=== PATIENT | female | born 1960 | race Caucasian/White ===

== ENCOUNTER 2017-02-19 03:31 | Emergency (ER) | payer BC ==
[2017-02-19 04:16] LABS: BASOPHILS 0.9 %; BASOPHILS ABSOLUTE 0.05 10/3/uL (0.0-0.16); EOSINOPHILS 2.1 %; EOSINOPHILS ABSOLUTE 0.12 10/3/uL (0.0-0.53); HEMATOCRIT 40.4 % (36.0-48.0); HEMOGLOBIN 14.2 g/dL (12.0-16.0); IMMATURE GRANULOCYTES 0.2 %; IMMATURE GRANULOCYTES ABSOLUTE 0.01 10/3/uL (0.0-0.11); LYMPHOCYTES ABSOLUTE 1.74 10/3/uL (0.67-4.30); MEAN CORPUSCULAR HEMOGLOB 29.7 pg (26.0-34.0); MEAN CORPUSCULAR VOLUME 84.5 fL (80-100); MEAN PLATELET VOLUME 11.2 fL (9.2-13.0); MONOCYTES 7.1 %; NEUTROPHILS 58.7 %; NEUTROPHILS ABSOLUTE 3.29 10/3/uL (2.02-8.40); PLATELET COUNT 252 10/3/uL (150-400); RBC DISTRIBUTION WIDTH 13.3 % (12.0-16.0); RED CELL COUNT 4.78 10/6/uL (4.0-5.6)
[2017-02-19 04:17] LABS: ER CBC TAT 0 Hrs 07 Mins; MANUAL DIFF NO %; MEAN CORPUS HGB CONC 35.1 g/dL (32.0-36.0); WHITE BLOOD CELLS 5.6 10/3/uL (4.5-10.5)
[2017-02-19 04:23] LABS: PARTIAL THROMBO TIME 29.3 SEC (22.5-37.2); PROTIME (NOT ORD) 13.2 SEC (12.0-14.5)
[2017-02-19 04:34] LABS: ALBUMIN 3.8 G/DL (3.5-5.0); ALKALINE PHOSPHATASE 65 U/L (45-117); BUN (BLOOD UREA NITROGEN) 13 MG/DL (6-23); CALCIUM, SERUM 8.7 MG/DL (8.5-10.4); CHEST PAIN PROFILE TAT 0 Hrs 24 Mins; CHLORIDE, SERUM 106 MMOL/L (96-112); CO2 (CARBON DIOXIDE) 28 MMOL/L (24-34); CREATININE 0.51 MG/DL (0.55-1.02); DIRECT BILIRUBIN < 0.1 MG/DL (0.0-0.4); GFR AFRICAN AMERICAN 125 ML/MIN (>=60); GFR NON AFRICAN AMERICAN 107 ML/MIN (>=60); GLUCOSE, SERUM 105 MG/DL (60-99); INDIRECT BILIRUBIN(NOT ORDER) 0.6 MG/DL (0.1-0.9); POTASSIUM, SERUM 3.3 MMOL/L (3.5-5.3); SGOT(AST) 12 U/L (5-40); SGPT(ALT) 19 U/L (5-65); SODIUM, SERUM 144 MMOL/L (135-148); TOTAL BILIRUBIN 0.7 MG/DL (0-1.2); TOTAL PROTEIN 7.7 G/DL (6.0-8.5); TROPONIN I <0.02 NG/ML (<0.05)
[2017-02-19] MEDS ORDERED: LEVOTHYROXIN125 MCG PO (06:30)
[2017-02-19] MEDS ORDERED: NEXIUM20 M1 PO (06:31)
[2017-02-25] MEDS ORDERED: LEVOTHYROXIN137 MCG PO (12:04)
[2017-02-25] MEDS ORDERED: VITAMIN D31000 UNIT PO (12:05)
== END 2017-02-19 07:15 | disposition home or self-care (01) ==
LOC: ER 03:31
PROVIDERS: Specialist
DX: R07.9 Chest pain, unspecified (principal); R91.8 Other nonspecific abnormal finding of lung field; E87.6 Hypokalemia; Z79.899 Other long term (current) drug therapy
CPT/HCPCS: 71010; 71275; 80048; 80076; 83735; 84484; 85025; 85379; 85610; 85730; 93005; 99285; A9270-GY; J2405; Q9967

== ENCOUNTER 2017-02-28 10:52 | Day surgery (SDC) | payer BC ==
--- NOTE | ~2017-02-28 | EGD ---
EGD REPORT [facility] [address] [address] NAME: LUZ LOPEZ : 60 STATUS : REG [facility]#: [id number] AGE: 56 ADM/REG DATE : 02/28/17 MR#: [id number] REPORT SERV DATE: 02/28/17 DICTATED BY: ROM VANCE DATE: 02/28/17 REPORT STATUS : Draft TRANSCRIBED BY: [employer] DATE: 02/28/17 Pulmonology Patient Name: Luz Lopez Procedure Date: 02/28/2017 12:13 PM Date of : 1960 Attending MD: RONALDO VANCE MD Procedure Date No Time: 02/28/2017 Procedure: EBUS Navigational Bronchoscopy Indications: RLL lung mass Providers: RONALDO VANCE MD Referring MD: JACE ABRAMS MD Medicines: Lidocaine 2% 20 mL Complications: No immediate complications Procedure: Pre-Anesthesia Assessment: - ASA Grade Assessment: II - A patient with mild systemic disease. - After reviewing the risks and benefits, the patient was deemed in satisfactory condition to undergo the procedure. - A History and Physical has been performed. Patient meds and allergies have been reviewed. The risks and benefits of the procedure and the sedation options and risks were discussed with the patient. All questions were answered and informed consent was obtained. Patient identification and proposed procedure were verified prior to the procedure by the physician, the nurse and the anesthesiologist in the pre-procedure area in the procedure room. Mental Status Examination: alert and oriented. Airway Examination: normal oropharyngeal airway. Respiratory Examination: clear to auscultation. CV Examination: normal and RRR, no murmurs, no S3 or S4. ASA Grade Assessment: II - A patient with mild systemic disease. After reviewing the risks and benefits, the patient was deemed in satisfactory condition to undergo the procedure. The anesthesia plan was to use general anesthesia. Immediately prior to administration of medications, the patient was re-assessed for adequacy to receive sedatives. The heart rate, respiratory rate, oxygen saturations, blood pressure, adequacy of pulmonary ventilation, and response to care were monitored throughout the procedure. The physical status of the patient was re-assessed after the procedure. After obtaining informed consent, the Bronchoscope was introduced through the mouth, via the endotracheal tube (the patient was intubated for the procedure) and EGD REPORT [address] [place]. [address] NAME: LUZ LOPEZ : [birth year] STATUS : REG [facility] PAT#: [id number] AGE: 56 ADM/REG DATE : 02/28/17 MR#: [id number] REPORT SERV DATE: 02/28/17 DICTATED BY: ROM VANCE DATE: 02/28/17 REPORT STATUS : Draft TRANSCRIBED BY: [employer] DATE: 02/28/17 advanced to the tracheobronchial tree. the BF [id number] was introduced through the mouth, via the endotracheal tube (the patient was intubated for the procedure) and advanced to the tracheobronchial tree. The procedure was accomplished without difficulty. The patient tolerated the procedure well. Findings: The endotracheal tube is in good position. The visualized portion of the trachea is of normal caliber. The nay is sharp. The tracheobronchial tree was examined to at least the first subsegmental level. Bronchial mucosa and anatomy are normal; there are no endobronchial lesions, and no secretions. EBUS TBNA of lymph node level 11L x 4 passes for cytology EBUS TBNA of lymph node level 4L x 4 passes for cytology EBUS TBNA of lymph node level 7 x 4 passes for cytology EBUS TBNA of lymph node level 4R x 4 passes for cytology EBUS TBNA of lymph node level 11R x 4 passes for cytology Using SuperDimension Edge catheter 180, peripheral probe EBUS 17s, and fluoroscopy, I performed the following biopsies: RLL lung mass transbronchial needle aspirates x 13 passes for cytology RLL lung mass transbronchial brush biopsy x 2 pass for cytology RLL lung mass transbronchial forcep biopsies x 14 passes for histopathology Bronchoalveolar lavage was performed in the right lower lobe of the lung and sent for cell count, cytology, bacterial culture, viral smears \\T\\ culture, and fungal and AFB analysis. 180 mL of fluid were instilled. 30 mL were returned. The return was blood-tinged and cellular. Impression: Rapid On-Site Evaluation (DELFINA): Preliminary cytology is "necrotic tissue and debris, no evidence of malignancy" (final results are pending). Recommendation: - Await test results. - Chest X-ray post-procedure. - Further recommendations at outpatient post bronchoscopy. Attending Participation: I personally performed the entire procedure. RONALDO VANCE MD 02/28/2017 2:52 PM This report has been signed electronically. Number of Addenda: 0 Note Initiated On: 02/28/2017 12:13 PM [address] [id number]
--- NOTE | ~2017-02-28 | CN ---
Consultation Report [facility] [address] [place]. [address] NAME: LUZ LOPEZ : 60 STATUS : [facility]#: [id number] AGE: 56 ADM/REG DATE : 02/28/17 MR#: [id number] REPORT SERV DATE: 03/17/17 DICTATED BY: TIM VANCE DATE: 03/16/17 REPORT STATUS : Draft TRANSCRIBED BY: MODL DATE: 03/16/17 CONSULTATION DATE OF CONSULTATION: 02/28/[address] Colten Ballard: Thank you for requesting my opinion regarding evaluation and management of Ms. Luz Lopez's right lower lobe lung mass. Ms. Lopez is an extremely pleasant 56-year-old female with a significant past medical history of hypothyroidism and lifelong nonsmoker, who presents with a right lower lobe lung mass. Ms. Lopez states that she had no significant shortness of breath, but was undergoing a routine physical, and subsequent chest x-ray demonstrated suspicious findings. CT scan of the chest on 02/20/2016 demonstrated a 3.1 x 2.3 cm lung mass with a density of 17 Hounsfield units. The differential diagnosis included a potential pseudotumor, pleural fluid collection in the major fissure versus solid lung mass. The patient was recommended to undergo Pulmonary Medicine consultation. The patient states that she has mild shortness of breath well localized to the chest, nonradiating, with no significant alleviating or exacerbating factors. REVIEW OF SYSTEMS: A detailed 14-point review of systems was completed. Pertinent positives and negatives are listed above. PAST MEDICAL HISTORY: Hypothyroidism. PAST SURGICAL HISTORY: Status post thyroidectomy in 2001 and colonoscopy in 2011. SOCIAL HISTORY: The patient is a lifelong nonsmoker. She denies any significant history of alcohol or illicit drug abuse. FAMILY HISTORY: Noncontributory. ALLERGIES: NO KNOWN DRUG ALLERGIES. HOME MEDICATIONS: Reviewed and located in the paper chart. PHYSICAL EXAMINATION: VITAL SIGNS: Reviewed and located in the paper chart. GENERAL: In no acute distress. Able to communicate in full paragraphs at a time. HEENT: Normocephalic and atraumatic. Pupils are equal, round, and reactive to light and accommodation. Posterior oropharynx is clear. NECK: No JVD. No LAD. Trachea midline. CARDIOVASCULAR: Regular rate and rhythm. S1 and S2 present. LUNGS: Clear to auscultation bilaterally. Consultation Report [facility] [address] [place]. [address] NAME: LUZ LOPEZ : 60 STATUS : [facility] PAT#: [id number] AGE: 56 ADM/REG DATE : 02/28/17 MR#: [id number] REPORT SERV DATE: 03/17/17 DICTATED BY: TIM VANCE DATE: 03/16/17 REPORT STATUS : Draft TRANSCRIBED BY: BEVERLEY DATE: 03/16/17 ABDOMEN: Nontender, nondistended, soft. Positive bowel sounds. EXTREMITIES: No clubbing, cyanosis, or edema. SKIN: No new rashes, lesions, or ulcers. PSYCHIATRIC: Alert and oriented x3. Appropriate mood and affect. Appropriate insight and judgment. NEUROLOGIC: 5/5 strength in upper and lower extremities. Cranial nerves 2 through 12 intact. Gait not tested. DTRs not performed. IMAGING: CT scan of the chest performed on 02/19/2017 has been personally reviewed by me. No evidence of pulmonary embolism. An oval, well-circumscribed 3.1 cm mass in the right lower lobe abutting the right major fissure with a density of 17 Hounsfield units. The unusual finding is the low Hounsfield unit. Unclear whether this represents pseudotumor versus solid lung mass. ASSESSMENT AND PLAN: Ms. Luz Lopez is an extremely pleasant 56-year-old female with no significant past medical history and lifelong nonsmoker, who presents to [facility] for followup of an abnormal CT scan. The patient developed mild shortness of breath, underwent a PE protocol CT with no evidence of a PE. Was found to have an oval, well- circumscribed 3.1 x 2.3 cm lung mass with a density of 17 Hounsfield units. It is unclear whether this represents a solid malignancy as Hounsfield units are unusually low. The other potential etiologies including lipoid pneumonia, pseudotumor unlikely represent a pleural fluid collection. At this point, given Ms. Lopez's concern and the size of the lesion, she wanted to proceed with biopsy. We discussed in detail potential options including EBUS and navigation bronchoscopy, CT-guided needle biopsy, PET-CT scan, or continued serial CT followup. After discussing the risks, benefits, and alternatives to each of these procedures, we agreed to proceed forward with EBUS and navigation bronchoscopy. The patient is aware that the procedure is associated with potential life-threatening risks including lung collapse, respiratory failure, and even . RECOMMENDATIONS: A summary of my recommendations are as follows: 1. Proceed with EBUS and navigation bronchoscopy. 2. If it is nondiagnostic, consider PET-CT scan plus/minus CT FNA. 3. Follow up in our Pulmonary Clinic. Thank you for allowing me to participate in Ms. Loepz's care. Sincerely, DEREK/BEVERLEY Tim Vance M.D. Consultation Report [address] [place]. [address] NAME: LUZ LOPEZ : 60 STATUS : [facility] PAT#: [id number] AGE: 56 ADM/REG DATE : 02/28/17 MR#: [id number] REPORT SERV DATE: 03/17/17 DICTATED BY: TIM VANCE DATE: 03/16/17 REPORT STATUS : Draft TRANSCRIBED BY: BEVERLEY DATE: 03/16/17 / [id number] CC: Freedom Benitez M.D.
[~2017-02-28 10:52] MED LIST: LEVOTHYROXIN125 MCG PO; LEVOTHYROXIN137 MCG PO; NEXIUM20 M1 PO; VITAMIN D31000 UNIT PO
[2017-02-28 17:24] LABS: BD FL LYMPH (NOT ORD) 16 %; BD FL SOURCE (NOT ORD) BAL; BF BASO (NOT OF) 0 %; BF LARGE MONONUCLEAR 67 %; BF TOTAL CELL CT (NOT ORD 105 /MM3; BODY FLUID EOS (NOT ORD) 1 %; BODY FLUID RBC (NOT ORD) 16000 /MM3; BODY FLUID SEG (NOT ORD) 16 %
== END 2017-02-28 17:01 | disposition home or self-care (01) ==
LOC: DMU 10:52
PROVIDERS: Internal Medicine
PROC: 0B9F8ZX Drainage of Right Lower Lung Lobe, Via Natural or Artificial Opening Endoscopic, Diagnostic (ICD-10-PCS; principal; 2017-02-28 12:30)
PROC: 8E0WXBF Computer Assisted Procedure of Trunk Region, With Fluoroscopy (ICD-10-PCS; 2017-02-28 12:30)
PROC: 0BBF8ZX Excision of Right Lower Lung Lobe, Via Natural or Artificial Opening Endoscopic, Diagnostic (ICD-10-PCS; 2017-02-28 12:30)
PROC: 07B74ZX Excision of Thorax Lymphatic, Percutaneous Endoscopic Approach, Diagnostic (ICD-10-PCS; 2017-02-28 12:30)
PROC: 0BBF8ZX Excision of Right Lower Lung Lobe, Via Natural or Artificial Opening Endoscopic, Diagnostic (ICD-10-PCS; 2017-02-28 12:30)
DX: R91.8 Other nonspecific abnormal finding of lung field (principal); K21.9 Gastro-esophageal reflux disease without esophagitis; E89.0 Postprocedural hypothyroidism; Z87.891 Personal history of nicotine dependence; Z79.899 Other long term (current) drug therapy; Z98.890 Other specified postprocedural states
CPT/HCPCS: 71010; 84703; 87015; 87070; 87101; 87102; 87116; 87205; 88112; 88172; 88173; 88177; 88305; 88333; 88342; 89051; A9270-GY; C1725; C1769; J2250; J2405; J2710; J3010

== ENCOUNTER 2017-04-05 08:50 | Inpatient (IN) | payer BC ==
[2017-03-28 10:20] LABS: BASOPHILS 0.6 %; BASOPHILS ABSOLUTE 0.02 10/3/uL (0.0-0.16); EOSINOPHILS 2.3 %; EOSINOPHILS ABSOLUTE 0.08 10/3/uL (0.0-0.53); HEMATOCRIT 40.4 % (36.0-48.0); HEMOGLOBIN 13.8 g/dL (12.0-16.0); LYMPHOCYTES 32.3 %; LYMPHOCYTES ABSOLUTE 1.11 10/3/uL (0.67-4.30); MANUAL DIFF NO %; MEAN CORPUS HGB CONC 34.2 g/dL (32.0-36.0); MEAN CORPUSCULAR HEMOGLOB 29.3 pg (26.0-34.0); MEAN CORPUSCULAR VOLUME 85.8 fL (80-100); MEAN PLATELET VOLUME 11.2 fL (9.2-13.0); MONOCYTES 9.9 %; MONOCYTES ABSOLUTE 0.34 10/3/uL (0.21-1.20); NEUTROPHILS 54.9 %; NEUTROPHILS ABSOLUTE 1.89 10/3/uL (2.02-8.40); PLATELET COUNT 206 10/3/uL (150-400); RBC DISTRIBUTION WIDTH 13.1 % (12.0-16.0); RED CELL COUNT 4.71 10/6/uL (4.0-5.6); WHITE BLOOD CELLS 3.4 10/3/uL (4.5-10.5)
[2017-03-28 10:23] LABS: PROTIME (NOT ORD) 13.5 SEC (12.0-14.5)
[2017-03-28 10:28] LABS: ASCORBIC ACID (UR NOT ORDER) 40 (NEG); BILIRUBIN, URINE NEGATIVE (NEG); KETONE, URINE TRACE MG/DL (NEG); LEUKOCYTE ESTERASE(NOT OR SMALL (NEG); WBC (NOT ORDERED) (RFLEX) 3 (0-5)
[2017-03-28 10:33] LABS: A/G RATIO 1.2 (0.7-1.9); ALBUMIN 3.8 G/DL (3.5-5.0); ALKALINE PHOSPHATASE 63 U/L (45-117); BUN (BLOOD UREA NITROGEN) 15 MG/DL (6-23); CALCIUM, SERUM 8.8 MG/DL (8.5-10.4); CHLORIDE, SERUM 110 MMOL/L (96-112); CO2 (CARBON DIOXIDE) 30 MMOL/L (24-34); CREATININE 0.47 MG/DL (0.55-1.02); GFR AFRICAN AMERICAN 128 ML/MIN (>=60); GFR NON AFRICAN AMERICAN 110 ML/MIN (>=60); GLOBULIN 3.3 G/DL (2.5-4.1); GLUCOSE, SERUM 102 MG/DL (60-99); POTASSIUM, SERUM 4.4 MMOL/L (3.5-5.3); SGOT(AST) 21 U/L (5-40); SGPT(ALT) 26 U/L (5-65); SODIUM, SERUM 144 MMOL/L (135-148); TOTAL BILIRUBIN 0.8 MG/DL (0-1.2); TOTAL PROTEIN 7.1 G/DL (6.0-8.5)
--- NOTE | ~2017-04-05 | OP ---
Record Of Operation [facility] [address] [place]. [address] NAME: LUZ LOPEZ : 60 STATUS : ADM IN PAT#: [id number] AGE: 56 ADM/REG DATE : 04/05/17 MR#: [id number] REPORT SERV DATE: 04/05/17 DICTATED BY: FELIZ JIMENEZ JR. DATE: 04/05/17 REPORT STATUS : Draft TRANSCRIBED BY: MODL DATE: 04/05/17 DATE OF PROCEDURE: 04/05/2017 PREOPERATIVE DIAGNOSES: History of atypical chest pain and TIA, right lower lobe indeterminate mass, rule out bronchogenic carcinoma. 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 NAME OF OPERATION: Bronchoscopy, right thoracoscopy with right lower lobe wedge excision for diagnosis, intercostal nerve block. SURGEON: Feliz Jimenez junior, MD. RESIDENT SURGEON: Dr. Easton Prado. SURFACE LOGGING SYSTEMS LOGGER: Freddy Villagomez. ANESTHESIA: General endotracheal. FINDINGS: The patient was noted to have no endobronchial lesions or tumors seen. Mucous secretions were evacuated. Upon exploration of the chest, there were no adhesions. There was a tumor with benign characteristics involving the superior segment of the right lower lobe. This was wedged out removing essentially the superior segment of the right lower lobe. Frozen section confirmed this to be a benign tumor. It had features more like a hamartoma than a granuloma. A portion of the tumor was sent for cultures. Final pathology is pending. DETAILS OF OPERATION: After adequate general anesthesia, the patient was intubated. A bronchoscopy was performed noting no endobronchial lesions or contraindication proceeding on with surgery. A left-sided double-lumen endotracheal tube was then placed. The patient was then positioned in the left lateral decubitus position. The right chest was prepped and draped in a routine sterile fashion. A small incision made overlying the lower intercostal space. A separate anterior trocar incision was also made. Through these two incision sites, the above findings were noted. The mass was easily identifiable. It was felt that we could wedge this out removing the majority of the superior segment. Multiple firings of JULISA stapler with tissue reinforcements utilized to remove the mass. It was placed within the specimen bag and withdrawn through the anterior trocar site. An intercostal nerve block was performed. Frozen section confirmed this to be a benign tumor. Portion of the tumor was sent for cultures. A 28-Paraguayan chest tube was then placed. The chest was thoroughly irrigated with sterile water. The lung was reinflated. The trocar sites were closed with running Vicryl sutures. The skin was closed with running monofilament suture. A Dermabond dressing was applied and the procedure was terminated at this point. The patient tolerated the procedure well and taken back to the recovery room in stable condition. Record Of Operation [address] [place]. [address] NAME: LUZ LOPEZ : 60 STATUS : ADM IN [facility]#: [id number] AGE: 56 ADM/REG DATE : 04/05/17 MR#: [id number] REPORT SERV DATE: 04/05/17 DICTATED BY: FELIZ JIMENEZ JR. DATE: 04/05/17 REPORT STATUS : Draft TRANSCRIBED BY: BEVERLEY DATE: 04/05/17 ZACH/BEVERLEY Feliz Jimenez Jr., M.D. / [id number] CC: Freedom Sow Jr., M.D.
[2017-04-06 06:59] LABS: BASOPHILS 0 %; EOSINOPHILS 0 %; HEMATOCRIT 38.4 % (36.0-48.0); HEMOGLOBIN 12.7 g/dL (12.0-16.0); IMMATURE GRANULOCYTES 0.1 %; IMMATURE GRANULOCYTES ABSOLUTE 0.01 10/3/uL (0.0-0.11); LYMPHOCYTES 13.6 %; LYMPHOCYTES ABSOLUTE 1.01 10/3/uL (0.67-4.30); MEAN CORPUS HGB CONC 33.1 g/dL (32.0-36.0); MEAN CORPUSCULAR HEMOGLOB 28.8 pg (26.0-34.0); MEAN CORPUSCULAR VOLUME 87.1 fL (80-100); MEAN PLATELET VOLUME 11.7 fL (9.2-13.0); MONOCYTES 8.9 %; MONOCYTES ABSOLUTE 0.66 10/3/uL (0.21-1.20); NEUTROPHILS 77.4 %; NEUTROPHILS ABSOLUTE 5.75 10/3/uL (2.02-8.40); PLATELET COUNT 176 10/3/uL (150-400); RBC DISTRIBUTION WIDTH 13.6 % (12.0-16.0); RED CELL COUNT 4.41 10/6/uL (4.0-5.6); WHITE BLOOD CELLS 7.4 10/3/uL (4.5-10.5)
[2017-04-06 07:00] LABS: MANUAL DIFF NO %
[2017-04-06 07:08] LABS: BUN (BLOOD UREA NITROGEN) 9 MG/DL (6-23); CALCIUM, SERUM 8.6 MG/DL (8.5-10.4); CHLORIDE, SERUM 108 MMOL/L (96-112); CO2 (CARBON DIOXIDE) 29 MMOL/L (24-34); CREATININE 0.55 MG/DL (0.55-1.02); GFR AFRICAN AMERICAN 122 ML/MIN (>=60); GFR NON AFRICAN AMERICAN 105 ML/MIN (>=60); GLUCOSE, SERUM 120 MG/DL (60-99); POTASSIUM, SERUM 4.2 MMOL/L (3.5-5.3); SODIUM, SERUM 142 MMOL/L (135-148)
[2017-04-06] MEDS ORDERED: PCET PO (09:15)
== END 2017-04-06 12:20 | disposition home or self-care (01) | DRG 168 ==
LOC: SDC/OF 08:50 → PACU 14:03 → 5NO 15:19
PROVIDERS: Thoracic Surgery (Cardiothoracic Vascular Surgery)
PROC: 0BJ08ZZ Inspection of Tracheobronchial Tree, Via Natural or Artificial Opening Endoscopic (ICD-10-PCS; 2017-04-05)
PROC: 3E0T3BZ Introduction of Anesthetic Agent into Peripheral Nerves and Plexi, Percutaneous Approach (ICD-10-PCS; 2017-04-05)
PROC: 0BBF4ZX Excision of Right Lower Lung Lobe, Percutaneous Endoscopic Approach, Diagnostic (ICD-10-PCS; principal; 2017-04-05 10:30)
DX: D14.31 Benign neoplasm of right bronchus and lung (principal); E03.9 Hypothyroidism, unspecified; K21.9 Gastro-esophageal reflux disease without esophagitis; Z87.891 Personal history of nicotine dependence
CPT/HCPCS: 36415; 71020; 80048; 80053; 81001; 82962; 83036; 84703; 85025; 85610; 86850; 86900; 86901; 86920; 87015; 87070; 87075; 87086; 87102; 87116; 87205; 87641; 88307; 88313; 88331; 88341; 88342; 93005; 94640; A9270-GY; J0690; J1170; J1885; J2250; J2370; J2405; J2550; J2710; J2795; J3010